=== PATIENT | female | born 2000 | race Caucasian/White ===

== ENCOUNTER → 2020-09-02 10:52 | Outpatient (BNVA) | payer BC, SELFPAY | PROVIDERS: PCP Nurse Practitioner Primary Care; Visit Provider Surgery ==

== ENCOUNTER 2020-09-20 | Outpatient (REF) | payer BC, SELFPAY ==
[2020-09-20 08:00] VITALS: BMI 20.7
[2020-09-20 08:04] VITALS: BP 128/72; PULSE 88; RESP 16; TEMP 37.3; O2SAT 99
[2020-09-20 08:41] VITALS: BP 128/70; PULSE 80; RESP 16; O2SAT 100
--- NOTE | 2020-09-20 08:43 | P.OP_ITS ---
Operative Note Operative Note Date of Service: 09/20/20 Narrative: Preoperative diagnosis: Nexplanon, left upper arm Postoperative diagnosis: same Procedure: Removal of Nexplanon left upper arm Surgeon: Ritchie Hutchinson MD Senior Accounting Specialist: none Anesthesia Local: Indications for procedure: 20 year old female presenting with a inplant in the left upper arm placed approximately 5 years ago. Operative findings: Inplant in left upper arm densely adherent to the dermis and subcutaneous tissue. Specimen:Nexplanon left upper arm Estimated blood loss:2 mls Complications:none Procedure details: Patient brought to the minor surgery suite and placed in a supine position with the left arm extended on an arm board. After assuring informed consent and confirming the site of surgery in the left upper arm, the skin was prepped with Betadene and draped in a sterile fashion. Local was infiltrated around the entry site and a 4 mm incision made with a #15 blade. A hemostat was used to dissect into the subcutaneous tissue to expose the distal portion of the implant. This was grasped with the hemostat and pulled through the incision. Because of the adhesions, the implant broke in half. The hemostat was used to bluntly dissect further until the remaining implant could be removed intact. Pressure was help to assure hemostasis. The skin was closed with an interrupted 4-0 Polysorb suture. Surgical glue was then applied. The patient tolerated the procedure well and was discharged to home in stable condition.
== END 2020-09-20 00:01 | disposition home or self-care (01) ==
LOC: HO.MS
PROVIDERS: PCP Nurse Practitioner Primary Care; Visit Provider Surgery
PROC: (CPT 11982; principal; 2020-09-20 08:00)
DX: Z30.49 Encounter for surveillance of other contraceptives (principal); Z88.0 Allergy status to penicillin; Z88.8 Allergy status to other drugs, medicaments and biological substances
CPT/HCPCS: 11982

== ENCOUNTER → 2020-10-06 10:17 | Outpatient (BNVA) | payer BC, SELFPAY | PROVIDERS: PCP Nurse Practitioner Primary Care; Referring Provider Nurse Practitioner Primary Care; Visit Provider Surgery ==

== ENCOUNTER 2023-07-12 14:01 | Outpatient (REF) | payer OTHER, BC, SELFPAY ==
[2023-07-12 16:38] LABS: Basophils Absolute Auto 0.1 X10*3/uL (0.0-0.2); Basophils Percent Auto 0.4 % (0-2); Eosinophils Absolute Auto 0.1 X10*3/uL (0.0-0.4); Eosinophils Percent Auto 0.6 % (0-4); Hematocrit 38.8 % (37.0-47.0); Hemoglobin 12.7 g/dl (12.0-16.0); Imm Gran Abs Auto 0.06 X10*3/uL (0.00-0.03); Imm Gran Pct Auto 0.4 % (0.0-0.4); Lymphocytes Absolute Auto 1.7 X10*3/uL (1.2-4.9); MANUAL DIFF FLAG NO; Mean Corpuscular HGB Conc 32.7 g/dl (31.0-35.0); Mean Corpuscular Hemoglobin 29.2 pg (27.0-33.0); Mean Corpuscular Volume 89.2 fL (80.0-98.0); Mean Platelet Volume 10.4 fL (9.4-12.3); Monocytes Absolute Auto 0.8 X10*3/uL (0.1-1.2); Monocytes Percent Auto 5.3 % (2-11); Neutrophils Absolute Auto 11.5 x10*3/uL (2.0-8.3); Neutrophils Percent Auto 81.3 % (45-73); Platelet Count 325 X10*3/uL (160-400); Red Blood Count 4.35 X10*6/uL (4.20-5.50); Red Cell Distribution Width 12.6 % (11.0-16.0); White Blood Count 14.1 X10*3/uL (4.8-10.8)
[2023-07-12 16:52] LABS: Anion Gap 9 (12-20); Blood Urea Nitrogen 10 mg/dL (9-16); Carbon Dioxide 29 mmol/L (22-29); Chloride 106 mmol/L (96-108); Estimated Glomerular Filt Rate > 60; Glucose Random 94 mg/dL (60-115); Potassium 4.3 mmol/L (3.3-5.1); Sodium 140 mmol/L (135-145)
[2023-07-12 17:06] LABS: Lithium 0.36 mmol/L (0.60-1.20)
[2023-07-12 17:46] LABS: CT PCR NOT DETECTED (Not Detect.); NG PCR NOT DETECTED (Not Detect.)
[2023-07-13 09:41] LABS: HIV AB/AG Nonreactive (Nonreactive); HIV Num 1 0.07 S/CO (0.00-0.99); ~HepC Num1 0.39 S/CO (0.00-0.79); ~Hepatitis C Antibody Nonreactive (Nonreactive)
[2023-07-15 09:24] LABS: RPR Rapid Plasma Reagin NON-REACTIVE (NON-REACTIVE)
[2023-07-16 08:57] LABS: HIV RNA PCR Qn Copies NOT DETECTED copies/mL (NOT DETECTED); HIV RNA PCR Qn Log Copies NOT DETECTED (NOT DETECTED)
== END 2023-07-12 14:02 | disposition home or self-care (01) ==
LOC: HO.HHCL 14:01
PROVIDERS: Visit Provider Nurse Practitioner Primary Care
DX: Z20.2 Contact with and (suspected) exposure to infections with a predominantly sexual mode of transmission (principal); Z79.899 Other long term (current) drug therapy
CPT/HCPCS: 0353U; 36415; 80048; 80178; 85025; 86592; 86803; 87389; 87536

== ENCOUNTER 2023-10-23 10:36 | Outpatient (REF) | payer OTHER, BC, SELFPAY ==
[2023-10-23 11:16] LABS: MANUAL DIFF FLAG NO
[2023-10-23 11:20] LABS: Basophils Percent Auto 0.4 % (0-2); Eosinophils Absolute Auto 0.2 X10*3/uL (0.0-0.4); Eosinophils Percent Auto 1.3 % (0-4); Hematocrit 38.4 % (37.0-47.0); Hemoglobin 13.1 g/dl (12.0-16.0); Imm Gran Abs Auto 0.03 X10*3/uL (0.00-0.03); Imm Gran Pct Auto 0.3 % (0.0-0.4); Lymphocytes Absolute Auto 1.6 X10*3/uL (1.2-4.9); Mean Corpuscular HGB Conc 34.1 g/dl (31.0-35.0); Mean Corpuscular Hemoglobin 31.2 pg (27.0-33.0); Mean Corpuscular Volume 91.4 fL (80.0-98.0); Monocytes Absolute Auto 0.6 X10*3/uL (0.1-1.2); Monocytes Percent Auto 5.6 % (2-11); Neutrophils Absolute Auto 8.7 x10*3/uL (2.0-8.3); Neutrophils Percent Auto 78.4 % (45-73); Platelet Count 247 X10*3/uL (160-400); Red Cell Distribution Width 13.1 % (11.0-16.0); White Blood Count 11.1 X10*3/uL (4.8-10.8)
[2023-10-23 12:17] LABS: Alanine Aminotransferase 11 U/L (0-31); Albumin Level 4.7 g/dL (3.5-5.0); Alkaline Phosphatase 70 U/L (39-117); Anion Gap 13 (12-20); Aspartate Amino Transferase 18 U/L (5-31); Bilirubin Total 2.2 mg/dL (0.0-1.0); Blood Urea Nitrogen 8 mg/dL (9-16); Calcium 9.9 mg/dL (8.4-10.2); Carbon Dioxide 24 mmol/L (22-29); Chloride 107 mmol/L (96-108); Estimated Glomerular Filt Rate > 60; Glucose Random 97 mg/dL (60-115); Potassium 3.8 mmol/L (3.3-5.1); Sodium 140 mmol/L (135-145); TSH reflex Free T4 0.58 uIU/mL (0.32-4.0); Total Protein 7.7 g/dL (6.5-8.0)
[2023-10-24 20:04] LABS: Immunoglobulin A 218 mg/dL (47-310); Transglutaminase IgA <1.0 U/mL
== END 2023-10-23 10:37 | disposition home or self-care (01) ==
LOC: HO.HHCL 10:36
PROVIDERS: Visit Provider Family Medicine
DX: R42 Dizziness and giddiness (principal); R10.13 Epigastric pain; R19.7 Diarrhea, unspecified; R63.4 Abnormal weight loss; Z79.899 Other long term (current) drug therapy
CPT/HCPCS: 36415; 80053; 82784; 84443; 85025; 86364

== ENCOUNTER 2024-10-01 11:48 | Outpatient (REF) | payer BC, SELFPAY ==
[2024-10-01 13:26] LABS: Immature Retic Fraction 5.6 % (3.0-15.9); Retic HGB Equivalent 33.2 pg (30.0-35.0); Reticulocyte Percent 1.7 % (0.5-1.8); Reticulocytes Absolute 0.071 X10*6/uL (0.026-0.095)
[2024-10-01 13:51] LABS: Anion Gap 9 (12-20); Blood Urea Nitrogen 11 mg/dL (9-16); Calcium 9.1 mg/dL (8.4-10.2); Carbon Dioxide 27 mmol/L (22-29); Chloride 108 mmol/L (96-108); Estimated Glomerular Filt Rate > 60; Glucose Random 99 mg/dL (60-115); Potassium 4.8 mmol/L (3.3-5.1); Sodium 139 mmol/L (135-145)
--- OUTSIDE RECORDS SUMMARY | 2024-10-01 14:12 | XMS_ITS | Clinical Summary ---
Author Organization [facility] Address [address] [place] [address] Care Team Providers Care Guitar Instructor Name Role Phone Marta Vasques NP Primary Care Provider [phone] Allergies Active Allergy Reactions Criticality Noted Date Comments Penicillins Rash Low 08/05/2017 Pt states she is resistant to PCN Medications Medication Sig Dispensed Refills Start Date End Date Status estradiol (VIVELLE-DOT) 0.075 MG/24HR 1 PATCH TOPICALLY EVERY SATURDAY AND SATURDAY 5 01/07/2018 Active hydrOXYzine (VISTARIL) 50 MG capsule Take 1 capsule (50 mg total) by mouth 2 (two) times a day. 0 Active Vraylar 3 MG capsule Take 3 mg by mouth daily. 0 01/07/2021 Active lithium (ESKALITH) 450 MG CR tablet Take 450 mg by mouth 2 (two) times a day. 0 01/23/2021 Active busPIRone (BUSPAR) 30 MG tablet Take 30 mg by mouth 2 (two) times a day. 0 01/31/2021 Active ondansetron (ZOFRAN-ODT) 4 MG disintegrating tablet Take 1 tablet (4 mg total) by mouth every 6 (six) hours as needed for nausea. 20 tablet 0 02/13/2021 Active Descovy 200-25 MG TABS per tablet TAKE ONE TABLET BY MOUTH EVERY DAY (ORIGINAL BOTTLE) 0 11/28/2023 Active Active Problems Problem Noted Date Diagnosed Date Closed Colles' fracture of r ight radius with routine healing 12/25/2023 Social History Tobacco Use Types Packs/Day Years Used Date Smoking Tobacco: Every Day Nicotine Inhalation Smokeless Tobacco: Never Alcohol Use Standard Drinks/Week Comments Yes 0 (1 standard drink = 0.6 oz pur e alcohol) social Sex and Gender Information Value Date Recorded Sex Assigned at Male 03/03/2018 7:13 AM EST Gender Identity Female 03/03/2018 7:13 AM EST Sexual Orientation Not on file Job Start Date Occupation Industry Not on file Not on file Not on file Last Filed Vital Signs Vital Sign Reading Time Taken Comments Blood Pressure 152/66 12/23/2023 8:09 PM EDT Pulse 110 12/23/2023 8:09 PM EDT Temperature 37.3 C (99.1 F) 12/23/2023 8:09 PM EDT Respiratory Rate 20 12/23/2023 8:09 PM EDT Oxygen Saturation 97% 12/23/2023 8:09 PM EDT Inhaled Oxygen Concentration - - Weight 61.2 kg (135 lb) 12/23/2023 8:09 PM EDT Height 177.8 cm (5' 10 ) 12/23/2023 8:09 PM EDT Body Mass Index 19.37 12/23/2023 8:09 PM EDT Plan of Treatment Health Maintenance Due Date Last Done Comments COVID-19 Vaccine (#1) 1999 Pneumococcal Vaccine (1 of 2 - PCV) 2005 04/25/2000, 01/23/2000 Depression Screening 2011 Gonorrhea and Chlamydia Screening 01/29/2012 Preventative Health Evaluation 2017 Tobacco Cessation Counseling 2017 Cervical Cancer Screening (Pap Smear) 01/29/2020 DTap / Tdap / Td (7 - Td or Tdap) 02/23/2021 02/23/2011, 02/28/2004, 08/12/2000, Additional history exists Influenza Vaccine (Season Ended) 2024 02/15/2022, 03/09/2021, 04/05/2020, Additional history exists Hepatitis B Vaccines Completed 06/23/2020, 01/23/2000, 1999, Additional history exists Hepatitis C Screening Completed 07/12/2023 RSV Ped < 20 months Aged Out No longe r eligible based on patient's age to complete this topic Care Teams Guitar Instructor Relationship Specialty Start Date End Date Marta Vasques NP [address] [place] [address] PCP - General Nurse Practitioner 12/23/23
[2024-10-02 17:09] LABS: C. Trachomatis RNA TMA, Throat NOT DETECTED (NOT DETECTED); N. gonorrhoeae RNA TMA, Throat NOT DETECTED (NOT DETECTED)
[2024-10-08 04:23] LABS: Estradiol Ultra Sensitive 30 pg/mL (< OR = 29)
== END 2024-10-01 11:49 | disposition home or self-care (01) ==
LOC: HO.HHCL 11:48
PROVIDERS: PCP Nurse Practitioner Primary Care; Visit Provider Nurse Practitioner Primary Care
DX: E87.6 Hypokalemia (principal); R17 Unspecified jaundice; Z90.79 Acquired absence of other genital organ(s); Z11.3 Encounter for screening for infections with a predominantly sexual mode of transmission; R40.0 Somnolence
CPT/HCPCS: 36415; 80048; 82670; 85045; 87491; 87591